=== PATIENT | male | born 1975 | race Two or more races ===

== ENCOUNTER 2017-07-01 13:17 | Emergency (ER) | payer SELFPAY ==
[~2017-07-01] VITALS: Ht 162.6 cm; Wt 86.2 kg
--- NOTE | 2017-07-01 13:37 | PHYS DOC ---
Past Medical History Past Medical History: No Pertinent History Past Surgical History: No Surgical History Alcohol Use: Occasionally Drug Use: Marijuana Adult General Chief Complaint Chief Complaint: CHEST PAIN HPI HPI Patient is a 41 year old male who presents with two-week history of progressive in intensity mild to moderate left-sided chest pain radiating down the left arm not necessarily associated with activity and sharp but getting worse; no prior cardiac workup; no nausea vomiting or dyspnea; denies history of diabetes hypertension; family history with grandmother and coronary artery disease; smokes tobacco. Seen at [facility] Review of Systems Review of Systems Constitutional: Denies fever or chills [] Eyes: Denies change in visual acuity, redness, or eye pain [] HENT: Denies nasal congestion or sore throat [] Respiratory: Denies cough or shortness of breath [] Cardiovascular: No additional information not addressed in HPI [] GI: Denies abdominal pain, nausea, vomiting, bloody stools or diarrhea [] : Denies dysuria or hematuria [] Musculoskeletal: Denies back pain or joint pain [] Integument: Denies rash or skin lesions [] Neurologic: Denies headache, focal weakness or sensory changes [] Endocrine: Denies polyuria or polydipsia [] All other systems were reviewed and found to be within normal limits, except as documented in this note. Current Medications Current Medications Current Medications Medications (Trade) Dose Ordered Sig/Dimitri Start Time Stop Time Status Last Admin Dose Admin Aspirin (Children'S Aspirin) 324 mg 1X ONCE 07/01/17 13:45 07/01/17 13:46 DC 07/01/17 13:51 324 MG Allergies Allergies Allergies Coded Allergies Type Severity Reaction Last Updated Verified No Known Drug Allergies 10/08/14 No Physical Exam Physical Exam Constitutional: Well developed, well nourished, no acute distress, non-toxic appearance. [] HENT: Normocephalic, atraumatic, bilateral external ears normal, oropharynx moist, no oral exudates, nose normal. [] Eyes: PERRLA, EOMI, conjunctiva normal, no discharge. [] Neck: Normal range of motion, no tenderness, supple, no stridor. [] Cardiovascular:Heart rate regular rhythm, no murmur [] Lungs & Thorax: Bilateral breath sounds clear to auscultation [] Abdomen: Bowel sounds normal, soft, no tenderness, no masses, no pulsatile masses. [] Skin: Warm, dry, no erythema, no rash. [] Back: No tenderness, no CVA tenderness. [] Extremities: No tenderness, no cyanosis, no clubbing, ROM intact, no edema. [] Neurologic: Alert and oriented X 3, normal motor function, normal sensory function, no focal deficits noted. [] Psychologic: Affect normal, judgement normal, mood normal. [] Current Patient Data Vital Signs Vital Signs Date Time Temp Pulse Resp B/P (MAP) Pulse Ox O2 Delivery O2 Flow Rate FiO2 07/01/17 14:30 64 128/76 (93) 98 Room Air 07/01/17 13:20 98.0 16 98.0 Lab Values Laboratory Tests Test 07/01/17 13:30 White Blood Count 7.0 x10^3/uL (4.0-11.0) Red Blood Count 5.00 x10^6/uL (4.30-5.70) Hemoglobin 15.3 g/dL (13.0-17.5) Hematocrit 45.8 % (39.0-53.0) Mean Corpuscular Volume 92 fL (79-100) Mean Corpuscular Hemoglobin 31 pg (25-35) Mean Corpuscular Hemoglobin Concent 33 g/dL (31-37) Red Cell Distribution Width 13.6 % (11.5-14.5) Platelet Count 251 x10^3/uL (140-400) Neutrophils (%) (Auto) 66 % (31-73) Lymphocytes (%) (Auto) 27 % (24-48) Monocytes (%) (Auto) 5 % (0-9) Eosinophils (%) (Auto) 1 % (0-3) Basophils (%) (Auto) 1 % (0-3) Neutrophils # (Auto) 4.6 x10^3uL (1.8-7.7) Lymphocytes # (Auto) 1.9 x10^3/uL (1.0-4.8) Monocytes # (Auto) 0.4 x10^3/uL (0.0-1.1) Eosinophils # (Auto) 0.1 x10^3/uL (0.0-0.7) Basophils # (Auto) 0.0 x10^3/uL (0.0-0.2) Sodium Level 139 mmol/L (136-145) Potassium Level 3.9 mmol/L (3.5-5.1) Chloride Level 103 mmol/L (98-107) Carbon Dioxide Level 29 mmol/L (21-32) Anion Gap 7 (6-14) Blood Urea Nitrogen 12 mg/dL (8-26) Creatinine 1.1 mg/dL (0.7-1.3) Estimated GFR (Cockcroft-Gault) 74.5 BUN/Creatinine Ratio 11 (6-20) Glucose Level 112 mg/dL (70-99) H Calcium Level 8.9 mg/dL (8.5-10.1) Total Bilirubin 0.3 mg/dL (0.2-1.0) Aspartate Amino Transferase (AST) 24 U/L (15-37) Alanine Aminotransferase (ALT) 27 U/L (16-63) Alkaline Phosphatase 67 U/L (46-116) Troponin I Quantitative < 0.017 ng/mL (0.000-0.055) Total Protein 7.5 g/dL (6.4-8.2) Albumin 3.7 g/dL (3.4-5.0) Albumin/Globulin Ratio 1.0 (1.0-1.7) Laboratory Tests 07/01/17 13:30 Laboratory Tests 07/01/17 13:30 EKG EKG EKG normal sinus rhythm rate of 68 no STEMI QTC normal 376 my interpretation[] Radiology/Procedures Radiology/Procedures Chest x-ray[] no acute cardiopulmonary process seen my review Course & Med Decision Making Course & Med Decision Making Pertinent Labs and Imaging studies reviewed. (See chart for details) [Workup was unremarkable. Patient is pain-free. I have recommended the patient be admitted for serial EKGs and enzymes further cardiac workup including possible stress test and/or heart catheter. He is declining this at this time and understands the risks including and disability from heart attack. He is preferring to follow up with an outpatient residential care facility manager.] Dragon Disclaimer Dragon Disclaimer This electronic medical record was generated, in whole or in part, using a voice recognition dictation system. Departure Departure Impression: Primary Impression: Acute chest pain Disposition: HOME, SELF-CARE Condition: STABLE Referrals: NO PCP (PCP) JOE SALINAS MD Patient Instructions: Chest Pain (Nonspecific), [id number] Additional Instructions: Please get follow-up with a residential care facility manager within the next 24-48 hours to be set up for a stress test. In the meantime take baby aspirin daily. ANDRY BARNES MD Jul 01, 2017 13:37
[2017-07-01 13:45] LABS: BASO % 1 % (0-3); EOS % 1 % (0-3); HEMATOCRIT 45.8 % (39.0-53.0); HEMOGLOBIN 15.3 g/dL (13.0-17.5); LYMPH # 1.9 x10^3/uL (1.0-4.8); LYMPH % 27 % (24-48); MEAN CORPUSCULAR HEMOGLOBIN 31 pg (25-35); MEAN CORPUSCULAR HGB CONC 33 g/dL (31-37); MEAN CORPUSCULAR VOLUME 92 fL (79-100); MONO % 5 % (0-9); NEUT % 66 % (31-73); PLATELET COUNT 251 x10^3/uL (140-400); RED CELL DISTRIBUTION WIDTH 13.6 % (11.5-14.5)
[2017-07-01] MEDS ORDERED: ASPIRIN CHEWABLE 81 MG TABLET. PO ONE (13:45)
[2017-07-01 13:56] LABS: CALCIUM 8.9 mg/dL (8.5-10.1); CREATININE 1.1 mg/dL (0.7-1.3); GFR 74.5; POTASSIUM 3.9 mmol/L (3.5-5.1)
[2017-07-01 14:02] LABS: ALBUMIN 3.7 g/dL (3.4-5.0); TOTAL BILIRUBIN 0.3 mg/dL (0.2-1.0); TOTAL PROTEIN 7.5 g/dL (6.4-8.2)
--- NOTE | 2017-07-01 14:14 | RAD ---
Portable chest, 07/01/2017: History: Chest pain Comparison is made to a study from 08/02/2015. The heart size and pulmonary vascularity are normal. No pulmonary infiltrates are seen. There is no evidence of pleural fluid. IMPRESSION: No acute cardiopulmonary abnormality is detected.
--- NOTE | 2017-07-01 14:15 | EKG ---
[facility] [address] [place] [address] Test Date: 2017-07-01 Test Time: 13:23:06 Pat Name: FRANCK HENAO Department: Room: Gender: M [employer] Person: MA : 1975 Requested By: ANDRY BARNES Order Number: [id number] Reading MD: Perry Beck Measurements Intervals [place] Rate: 68 P: 59 TX: 156 QRS: 2 QRSD: 84 T: 6 QT: 350 QTc: 376 Interpretive Statements SINUS RHYTHM LEFT ATRIAL ABNORMALITY NONSPECIFIC ST-T WAVE CHANGES. ABNORMAL ECG RI6.01 Electronically Signed On 07-01-2017 16:11:37 AMMONIUM SULFATE OPERATOR by Perry Beck
[2017-07-01 14:30] VITALS: BP 128/76
== END 2017-07-01 14:50 | disposition home or self-care (01) ==
LOC: ER 13:17
DX: R07.89 Other chest pain (principal); F12.10 Cannabis abuse, uncomplicated
CPT/HCPCS: 36415; 71010; 80053; 84484; 85025; 93005; 99285-25

== ENCOUNTER 2021-09-30 15:14 | Emergency (ER) | payer SELFPAY ==
[~2021-09-30] VITALS: Ht 170.2 cm; Wt 100.0 kg
[2021-09-30 15:21] VITALS: BP 176/97
[2021-09-30] MEDS ORDERED: HYDROcodone/APAP 5/325MG 1 TAB TABLET PO ONE (15:45)
--- NOTE | 2021-09-30 15:55 | RAD ---
AP, lateral and oblique views of the right ankle. No comparison is available. Indication: Twisted ankle. No fracture, subluxation or dislocation is seen. The ankle mortise is intact. There is lateral soft t issue swelling seen over the lateral malleolus. Cannot exclude ligamentous injury. Impression: Soft tissue swelling laterally, cannot exclude ligamentous injury. Electronically signed by: Travis Tyler MD (09/30/2021 3:53 PM) [facility]
--- NOTE | 2021-09-30 16:03 | PHYS DOC ---
Past Medical History Past Medical History: No Pertinent History Past Surgical History: No Surgical History Smoking Status: Current Some Day Smoker Alcohol Use: Occasionally Drug Use: Marijuana General Adult EDM: Chief Complaint: ANKLE PROBLEM HPI: HPI: Patient is a 45-year-old male who presents emergency department complaining of right ankle pain after twisting it this past Thursday evening. Patient reports he has twisted his ankle before and does not believe it is broken however states it is hurting longer than normal. Patient has not used any nonpharmacological pain relief methods, states he took an 800 mg ibuprofen at 3:00 this afternoon with minimal relief in pain. Reports a 10 out of 10 pain. Denies other physical complaints or physical injuries. Review of Systems: Review of Systems: 14 body systems of review of systems have been reviewed. See HPI for pertinent positives and negative responses, otherwise all other systems are negative, nonpertinent or noncontributory. Constitutional: Negative except as outlined in HPI above. Skin: Negative except as outlined in HPI above. Eyes: Negative except as outlined in HPI above. HENT: Negative except as outlined in HPI above. Respiratory: Negative except as outlined in HPI above. Cardiovascular: Negative except as outlined in HPI above. GI: Negative except as outlined in HPI above. : Negative except as outlined in HPI above. Musculoskeletal: Negative except as outlined in HPI above. Integument: Negative except as outlined in HPI above. Neurologic: Negative except as outlined in HPI above. Endocrine: Negative except as outlined in HPI above. Lymphatic: Negative except as outlined in HPI above. Psychiatric: Negative except as outlined in HPI above. Heart Score: C/O Chest Pain: No Risk Factors: Risk Factors: DM, Current or recent (<one month) smoker, HTN, HLP, family history of CAD, obesity. Risk Scores: Score 0 - 3: 2.5% MACE over next 6 weeks - Discharge Home Score 4 - 6: 20.3% MACE over next 6 weeks - Admit for Clinical Observation Score 7 - 10: 72.7% MACE over next 6 weeks - Early Invasive Strategies Current Medications: Current Medications Medications (Trade) Dose Ordered Sig/Dimitri Start Time Stop Time Status Last Admin Dose Admin Acetaminophen/ Hydrocodone Bitart (Lortab 5/325) 1 tab 1X ONCE 09/30/21 15:45 09/30/21 15:46 DC Allergies: Allergies: Allergies Coded Allergies Type Severity Reaction Last Updated Verified No Known Drug Allergies 10/08/14 No Physical Exam: PE: Constitutional: Well developed, well nourished, no acute distress, non-toxic appearance. 45-year-old male in no apparent distress. HENT: Normocephalic, atraumatic. Eyes: Conjunctiva normal, no discharge. Neck: Normal range of motion, no stridor. Cardiovascular: No cyanosis appreciated, distal cap refill less than 2 seconds. Lungs & Thorax: Patient is in no respiratory distress, no audible adventitious lung sounds appreciated. Abdomen: Nontender, no abnormalities noted. Skin: Warm, dry, no erythema, no rash. Back: No tenderness, no deformities. Extremities: No tenderness, no cyanosis, no clubbing, ROM intact, no edema. Except for right ankle, swelling to lateral malleolus, no crepitus appreciated, no pain to other part of right lower extremity. No bruising or ecchymosis appreciated, 2+ dorsalis pedis pulses bilaterally, distal cap refill less than 2 seconds bilateral lower extremities, limited passive range of motion of right ankle related to pain. Neurologic: Alert and oriented X 3, normal motor function, normal sensory function, no focal deficits noted. Psychologic: Affect normal, judgement normal, mood normal. Current Patient Data: Vital Signs: Vital Signs Date Time Temp Pulse Resp B/P (MAP) Pulse Ox O2 Delivery O2 Flow Rate FiO2 09/30/21 15:21 98.1 79 18 176/97 (123) 97 Room Air 98.1 EKG: EKG: [] Radiology/Procedures: Radiology/Procedures: REASON: Twisted ankle, swelling PROCEDURE: ANKLE RIGHT 3V AP, lateral and oblique views of the right ankle. No comparison is available. Indication: Twisted ankle. No fracture, subluxation or dislocation is seen. The ankle mortise is intact. There is lateral soft tissue swelling seen over the lateral malleolus. Cannot exclude ligamentous injury. Impression: Soft tissue swelling laterally, cannot exclude ligamentous injury. Electronically signed by: Travis Tyler MD (09/30/2021 3:53 PM) [facility] Course & Med Decision Making: Course & Med Decision Making Pertinent Labs and Imaging studies reviewed. (See chart for details) 45-year-old male, vital signs reviewed, presents emergency department complaining of right ankle pain after twisting his ankle this past Thursday. Physical examination concerning for right ankle sprain versus fracture, low likelihood of Maison[place]uve fracture related to no proximal fibular area pain with palpation or manipulation of right ankle. Will order right ankle x-ray, give p.o. pain medication. Ice, elevation for Right ankle x-ray negative for acute fracture, discussed findings with patient, will place Kevin wrap and ankle stirrup splint, strict follow-up with orthopedics this week, follow-up with primary care for ongoing pain management, return to ER precautions and concerns were reviewed, patient gave verbal understanding of and is amenable to ED discharge planning. Discussed with the patient all findings and diagnostic testing as well as the need to follow-up with their primary care provider for further evaluation and treatment or return to the ED if any new or worsening symptoms. Strict return precautions were also discussed at length, the patient voiced understanding and agreement with the discharge planning. The patient was nontoxic in appearance, in no apparent distress, and hemodynamically stable at the time of disposition. Dragon Disclaimer: Dragon Disclaimer: This electronic medical record was generated, in whole or in part, using a voice recognition dictation system. Departure Departure Impression: Primary Impression: Sprain of right ankle Qualified Codes: S93.401A - Sprain of unspecified ligament of right ankle, initial encounter Disposition: HOME / SELF CARE / HOMELESS Condition: GOOD Referrals: NO PCP (PCP) ANTONIO LEDESMA MD Patient Instructions: Ankle Sprain, Elastic Bandage and RICE Additional Instructions: Te vieron hoy en el departamento de emergencias despus de torcerse el tobillo el viernes pasado. Se realiz jaiden radiografa que no mostr ningn signo de hueso roto. Sin embargo, howell tobillo est hinchado y es sospechoso de un esguince de tobillo. Por lo tanto, se wong aplicado jaiden venda Kevin junto con jaiden frula de estribo de tobillo. Use frula hasta que lo luis un especialista en ortopedia esta semana, llame maana para programar jaiden nikunj. Le he dado la informacin al especialista ortopdico Dr. Ledesma. Utilice la terapia RICE, johanny es un acrnimo de descanso, hielo, compresin, elevacin. Use bolsas de hielo 30 minutos y 30 minutos mientras est despierto belinda las prximas 48 a 72 horas. Puede usar Tylenol o ibuprofeno de venta nam para el dolor y la incomodidad continuos. Regrese al departamento de emergencias si los sntomas empeoran u otras inquietudes. Vega por visitar nuestro Departamento de Emergencias. Fue un placer atenderlo hoy en el departamento de emergencias y le agradecemos que nos haya confiado howell atencin. Si surge algn problema adicional, no dude en volver a visitarnos. Rosa un seguimiento con howell proveedor de atencin primaria para que puedan planificar atencin adicional si es necesario y conocer el problema que tuvo. Si los sntomas empeoran, regrese al Departamento de Emergencias. Cualquier sntoma preocupante que comience, chaparrita dolor en el pecho, falta de aire, debilidad o entumecimiento en un lado del cuerpo, fiebre maribell o cualquier otro sntoma preocupante, regresa a la ayah de emergencias. You were seen today in the emergency department after twisting her ankle this past Thursday. An x-ray was performed did not show any signs of broken bone. However your ankle is swollen and is suspicious for an ankle sprain. Therefore an Kevin wrap has been applied along with an ankle stirrup splint. Please wear splint until seen by an orthopedic mechanic this week, call tomorrow for an appointment. I have given the information for orthopedic mechanic Dr. Ledesma. Please use RICE therapy, this is an acronym for rest, ice, compression, elevation. Use ice packs 30 minutes on and 30 minutes off while awake for the next 48 to 72 hours. You may use [id number] Tylenol or ibuprofen for ongoing pain and discomfort. Return to the emergency department for worsening symptoms or other concerns. Thank you for visiting our Emergency Department. It was a pleasure taking care of you today in the emergency department and we appreciate you trusting us with your care. If any additional problems come up don't hesitate to return to visit us. Please follow up with your primary care provider so they can plan additional care if needed and know about the problem that you had. If symptoms worsen come back to the Emergency Department. Any concerning symptoms that start such as chest pain, shortness of air, weakness or numbness on one side of the body, running high fevers or any other concerning symptoms return to the ER. EULALIA PRIDE APRN Sep 30, 2021 16:03
== END 2021-09-30 17:14 | disposition home or self-care (01) ==
LOC: ER 15:14
DX: S93.401A Sprain of unspecified ligament of right ankle, initial encounter (principal); F17.200 Nicotine dependence, unspecified, uncomplicated; X50.9XXA Other and unspecified overexertion or strenuous movements or postures, initial encounter; Y93.89 Activity, other specified; Y92.89 Other specified places as the place of occurrence of the external cause; Y99.8 Other external cause status
CPT/HCPCS: 29515; 73610; 99283; L4350; A6450